=== PATIENT | female | born 1965 | race African-American/Black ===

== ENCOUNTER 2016-08-08 18:15 | Emergency (ER) | payer SELFPAY ==
[2016-08-08 19:00] LABS: BASO % 0 % (0-3); EOS % 1 % (0-3); HEMATOCRIT 47.1 % (36.0-47.0); HEMOGLOBIN 15.5 g/dL (12.0-15.5); LYMPH # 2.1 x10^3/uL (1.0-4.8); LYMPH % 14 % (24-48); MEAN CORPUSCULAR HEMOGLOBIN 30 pg (25-35); MEAN CORPUSCULAR HGB CONC 33 g/dL (31-37); MEAN CORPUSCULAR VOLUME 91 fL (79-100); MONO % 4 % (0-9); NEUT % 81 % (31-73); PLATELET COUNT 267 x10^3/uL (140-400); RED BLOOD COUNT 5.16 x10^6/uL (3.50-5.40); RED CELL DISTRIBUTION WIDTH 13.3 % (11.5-14.5); WHITE BLOOD COUNT 15.3 x10^3/uL (4.0-11.0)
[2016-08-08] MEDS: FENTANYL PF 100 MCG/2 ML VIAL. IV PRN ×3 (19:07→22:00)
[2016-08-08] MEDS: NITROGLYCERIN SUBLINGUAL 0.4 MG BOTTLE OF 25. SL PRN ×3 (19:07→20:14)
[2016-08-08 19:14] LABS: CALCIUM 8.9 mg/dL (8.5-10.1); POTASSIUM 3.4 mmol/L (3.5-5.1)
[2016-08-08 19:18] LABS: BILIRUBIN,URINE NEGATIVE (NEG); GLUCOSE,URINE NEGATIVE (NEG); NITRITE,URINE NEGATIVE (NEG); PROTEIN,URINE NEGATIVE (NEG-TRACE); UROBILINOGEN,URINE 0.2 mg/dL (0.2 mg/dL)
[2016-08-08 19:22] LABS: ALBUMIN 3.7 g/dL (3.4-5.0); ALBUMIN/GLOBULIN RATIO 0.9 (1.0-1.7); TOTAL BILIRUBIN 0.4 mg/dL (0.2-1.0); TOTAL PROTEIN 7.7 g/dL (6.4-8.2)
[2016-08-08 19:23] LABS: PROTHROMBIN TIME PATIENT 12.8 SEC (11.7-14.0)
[2016-08-08 19:28] LABS: BACTERIA,URINE MODERATE /HPF (0-FEW); SQUAMOUS EPITHELIAL CELL,UR FEW /LPF
[2016-08-08] MEDS ORDERED: KETOROLAC TROMETHAMINE 30 MG/ML SYRINGE. IV ONE (20:15)
[2016-08-08 22:00] VITALS: BP 95/51
[2016-08-08] MEDS ORDERED: CYCL10TA2 PO (22:32)
[2016-08-08] MEDS ORDERED: NAPR250T2 PO (22:32)
--- NOTE | 2016-08-09 01:11 | ED.ADGEN ---
Past Medical History Past Medical History: No Pertinent History, Hypertension Past Surgical History: No Surgical History Alcohol Use: None Drug Use: None Adult General Chief Complaint Chief Complaint: CHEST PAIN HPI HPI Patient is a 51 year old woman, history of hypertension, who presents to the emergency department with complaint of right-sided and mid chest pain. Patient states the symptoms have been coming or going for the past several days. She states he did have a cough, with rhinorrhea last week, but not currently expressing the symptoms. Denies any productive cough, any difficulty breathing, any weakness emesis or tingling. She states the pain is located in the anterior portion of her chest, and is worse with motion and palpation. Denies any injuries. Review of Systems Review of Systems Constitutional: Denies fever or chills. [] Eyes: Denies change in visual acuity. [] HENT: Denies nasal congestion or sore throat. [] Respiratory: Denies cough or shortness of breath. [] Cardiovascular: Left-sided and midsternal chest pain pain, worse with motion and pressure. GI: Denies abdominal pain, nausea, vomiting, bloody stools or diarrhea. [] : Denies dysuria. [] Musculoskeletal: Denies back pain or joint pain. [] Integument: Denies rash. [] Neurologic: Denies headache, focal weakness or sensory changes. [] Endocrine: Denies polyuria or polydipsia. [] Lymphatic: Denies swollen glands. [] Psychiatric: Denies depression or anxiety. [] Current Medications Current Medications Current Medications Medications (Trade) Dose Ordered Sig/Michele Start Time Stop Time Status Last Admin Dose Admin Fentanyl Citrate (Fentanyl 2ml Vial) 25 mcg PRN Q15MIN PRN 08/08/16 19:00 08/08/16 23:35 DC 08/08/16 22:00 25 MCG Ketorolac Tromethamine (Toradol) 10 mg 1X ONCE 08/08/16 20:15 08/08/16 20:16 DC 08/08/16 20:13 10 MG Nitroglycerin (Nitrostat) 0.4 mg PRN Q5MIN PRN 08/08/16 19:00 08/08/16 23:35 DC 08/08/16 20:14 0.4 MG Allergies Allergies Allergies Coded Allergies Type Severity Reaction Last Updated Verified No Known Drug Allergies 01/25/15 No Physical Exam Physical Exam Constitutional: Well developed, well nourished, no acute distress, non-toxic appearance. [] HENT: Normocephalic, atraumatic, bilateral external ears normal, oropharynx moist, no oral exudates, nose normal. [] Eyes: PERRLA, EOMI, conjunctiva normal, no discharge. [] Neck: Normal range of motion, no tenderness, supple, no stridor. [] Cardiovascular:Heart rate regular rhythm, no murmur, S1, S2, rubs or gallops. [] Lungs & Thorax: Bilateral breath sounds clear to auscultation, no wheezing, rhonchi, rales. Patient with reproducible chest pain located in the anterior chest, no external signs of trauma, no rashes or other lesions identified. [] Abdomen: Bowel sounds normal, soft, no tenderness, no masses, no pulsatile masses. [] Skin: Warm, dry, no erythema, no rash. [] Back: No tenderness, no CVA tenderness. [] Extremities: No tenderness, no cyanosis, no clubbing, ROM intact, no edema. Negative Homans sign.] Neurologic: Alert and oriented X 3, normal motor function, normal sensory function, no focal deficits noted. [] Psychologic: Affect normal, judgement normal, mood normal. [] Current Patient Data Vital Signs Vital Signs Date Time Temp Pulse Resp B/P Pulse Ox O2 Delivery O2 Flow Rate FiO2 08/08/16 22:00 76 32 95/51 91 Room Air 08/08/16 18:27 98.2 98.2 Lab Values Laboratory Tests Test 08/08/16 18:35 08/08/16 19:10 08/08/16 21:55 White Blood Count 15.3x10^3/uL (4.0-11.0) H Red Blood Count 5.16x10^6/uL (3.50-5.40) Hemoglobin 15.5g/dL (12.0-15.5) Hematocrit 47.1% (36.0-47.0) H Mean Corpuscular Volume 91fL (79-100) Mean Corpuscular Hemoglobin 30pg (25-35) Mean Corpuscular Hemoglobin Concent 33g/dL (31-37) Red Cell Distribution Width 13.3% (11.5-14.5) Platelet Count 267x10^3/uL (140-400) Neutrophils (%) (Auto) 81% (31-73) H Lymphocytes (%) (Auto) 14% (24-48) L Monocytes (%) (Auto) 4% (0-9) Eosinophils (%) (Auto) 1% (0-3) Basophils (%) (Auto) 0% (0-3) Neutrophils # (Auto) 12.4x10^3uL (1.8-7.7) H Lymphocytes # (Auto) 2.1x10^3/uL (1.0-4.8) Monocytes # (Auto) 0.7x10^3/uL (0.0-1.1) Eosinophils # (Auto) 0.1x10^3/uL (0.0-0.7) Basophils # (Auto) 0.0x10^3/uL (0.0-0.2) Prothrombin Time 12.8SEC (11.7-14.0) Prothrombin Time INR 1.0 (0.8-1.1) Sodium Level 142mmol/L (136-145) Potassium Level 3.4mmol/L (3.5-5.1) L Chloride Level 105mmol/L (98-107) Carbon Dioxide Level 25mmol/L (21-32) Anion Gap 12 (6-14) Blood Urea Nitrogen 9mg/dL (7-20) Creatinine 1.0mg/dL (0.6-1.0) Estimated GFR (Cockcroft-Gault) 71.0 BUN/Creatinine Ratio 9 (6-20) Glucose Level 111mg/dL (70-99) H Calcium Level 8.9mg/dL (8.5-10.1) Total Bilirubin 0.4mg/dL (0.2-1.0) Aspartate Amino Transferase (AST) 12U/L (15-37) L Alanine Aminotransferase (ALT) 11U/L (14-59) L Alkaline Phosphatase 53U/L (46-116) Troponin I Quantitative < 0.017ng/mL (0.000-0.055) ZW-Vod-H-Type Natriuretic Peptide 55pg/mL (0-124) Total Protein 7.7g/dL (6.4-8.2) Albumin 3.7g/dL (3.4-5.0) Albumin/Globulin Ratio 0.9 (1.0-1.7) L Lipase 109U/L (73-393) Urine Collection Type Unknown Urine Color Yellow Urine Clarity Clear Urine pH 6.0 Urine Specific [place] 1.010 Urine Protein Negativemg/dL (NEG-TRACE) Urine Glucose (UA) Negativemg/dL (NEG) Urine Ketones (Stick) Negativemg/dL (NEG) Urine Blood Large (NEG) Urine Nitrite Negative (NEG) Urine Bilirubin Negative (NEG) Urine Urobilinogen Dipstick 0.2mg/dL (0.2 mg/dL) Urine Leukocyte Esterase Trace (NEG) Urine RBC 6-10/HPF (0-2) Urine WBC 1-4/HPF (0-4) Urine Squamous Epithelial Cells Few/LPF Urine Bacteria Moderate/HPF (0-FEW) Urine Mucus Slight/LPF POC Troponin I 0.00ng/ml (<0.08) Laboratory Tests 08/08/16 18:35 Laboratory Tests 08/08/16 18:35 EKG EKG EC: Sinus rhythm, heart rate 89 beats minute, upright axis, QTC of 420, SD 138, QRS of 70, no ST elevations or depressions, mild baseline artifact noted , no evidence of acute ST T abnormalities. As interpreted by me. [] Radiology/Procedures Radiology/Procedures Chest x-ray: One view: Mild hilar fullness noted, otherwise cardial cardiac silhouette is normal, no fracture civilization, no infiltrates or effusion. As interpreted by me. [] Course & Med Decision Making Course & Med Decision Making Pertinent Labs and Imaging studies reviewed. (See chart for details) Patient with reproducible chest pain, no hypoxia, normal oxygen saturation and other vital signs within normal limits, no evidence of respiratory difficulties. Laboratory studies reveal a normal troponin, and leukocytosis of 15.9, with mild left shift, no bandemia. Every question the patient regarding her report of previous cough, with rhinorrhea, symptoms may be consistent with a viral illness, and her examination is consistent with costochondritis or musculoskeletal chest wall pain. Patient received a repeat for a troponin in the ED, which was 0.0. I did discuss with patient admission for additional evaluation, as she has been experiencing this chest pain over the past week or so, however with 2 negative troponins, and very reproducible symptoms, with recent viral infection, patient would prefer to follow-up with her primary care provider, states she'll be able to follow-up in the next [address] Harry , is agreeable to trialing anti-inflammatory and muscle relaxing agents, and returning to the ED for concerning symptoms as discussed. Patient discharged home with family in stable condition with plan as above. Dragon Disclaimer Dragon Disclaimer This electronic medical record was generated, in whole or in part, using a voice recognition dictation system. Departure Impression: Primary Impression: Chest wall pain Disposition: HOME, SELF-CARE Condition: IMPROVED Scripts Naproxen 250 Mg [id number] Mg PO BID PRN PAIN #10 Prov:KAROLINA VELIZ DO 08/08/16 Cyclobenzaprine Hcl 10 Mg [id number] Mg PO TID PRN MUSCLE SPASMS #12 TAB Prov:KAROLINA VELIZ DO 08/08/16 KAROLINA VELIZ DO Aug 09, 2016 01:11
--- NOTE | 2016-08-09 06:44 | EKG ---
[facility] [address] [place] [address] Test Date: 2016-08-08 Test Time: 18:27:24 Pat Name: DIANA LOPEZ Department: Room: Gender: F Bank President: : 1965 Requested By: KAROLINA VELIZ Order Number: [id number] Reading MD: Measurements Intervals [place] Rate: 89 P: 38 DE: 138 QRS: 18 QRSD: 78 T: 26 QT: 344 QTc: 420 Interpretive Statements SINUS RHYTHM QRS(T) CONTOUR ABNORMALITY CONSIDER ANTEROSEPTAL MYOCARDIAL DAMAGE POSSIBLY ABNORMAL ECG RI6.01 No previous ECG available for comparison
--- NOTE | 2016-08-09 08:49 | RAD ---
Portable chest, 08/08/2016: History: Mid chest pain Comparison is made to a study from 02/19/2008. The heart size and pulmonary vascularity are normal. There are mild streaky basilar opacities compatible with atelectasis. The upper lung quinones are clear. No pleural fluid is evident. IMPRESSION: Mild streaky bibasilar atelectasis.
== END 2016-08-08 22:33 | disposition home or self-care (01) ==
LOC: ER 18:15
DX: R07.89 Other chest pain (principal); R05 Cough; J34.89 Other specified disorders of nose and nasal sinuses; I10 Essential (primary) hypertension
CPT/HCPCS: 36415; 71010; 80053; 81001; 83690; 83880; 84484; 85027; 85610; 87086; 93005; 96374; 96375; 96376; 99285; J1885; J3010

== ENCOUNTER 2017-05-22 14:20 | Emergency (ER) | payer OTHER ==
[~2017-05-22] VITALS: Ht 160 cm; Wt 77.1 kg
[~2017-05-22 14:20] MED LIST: CYCL10TA2 PO; NAPR250T6 PO
[2017-05-22 14:49] VITALS: BP 135/85
[2017-05-22] MEDS ORDERED: PRED20TA PO (15:52)
--- NOTE | 2017-05-22 15:52 | PHYS DOC ---
Past Medical History Past Medical History: No Pertinent History, Hypertension Past Surgical History: No Surgical History Alcohol Use: None Drug Use: None Adult General Chief Complaint Chief Complaint: INSECT BITE [facility] HPI Patient is a 52 year old female presents to the emergency department stating that she has a red spot on the her right upper foot. Patient also states that she has a reddened area on the inner part of her left arm. Patient states she's had 2 lesions on the back of her right heel that they've been irritated with yellow drainage coming from the site. These areas have healed. Patient denies any fever, chills or any nausea vomiting. 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 Review of Systems Review of Systems Constitutional: Denies fever or chills [] Eyes: Denies change in visual acuity, redness, or eye pain [] HENT: Denies nasal congestion or sore throat [] Respiratory: Denies cough or shortness of breath [] Cardiovascular: No additional information not addressed in HPI [] GI: Denies abdominal pain, nausea, vomiting, bloody stools or diarrhea [] : Denies dysuria or hematuria [] Musculoskeletal: Denies back pain or joint pain [] Integument: Denies rash or skin lesions. Red areas to the right upper foot, left upper inner arm Neurologic: Denies headache, focal weakness or sensory changes [] Endocrine: Denies polyuria or polydipsia [] Allergies Allergies Allergies Coded Allergies Type Severity Reaction Last Updated Verified No Known Drug Allergies 01/25/15 No Physical Exam Physical Exam Constitutional: Well developed, well nourished, no acute distress, non-toxic appearance. [] HENT: Normocephalic, atraumatic, bilateral external ears normal, oropharynx moist, no oral exudates, nose normal. [] Eyes: PERRLA, EOMI, conjunctiva normal, no discharge. [] Neck: Normal range of motion, no tenderness, supple, no stridor. [] Cardiovascular:Heart rate regular rhythm, no murmur [] Lungs & Thorax: Bilateral breath sounds clear to auscultation [] Skin: Warm, dry, no erythema, no rash. Patient with redness noted to the top of the metatarsal areas on the right foot. She has a reddened area noted to the left inner arm just above the antecubital area. No puncture wounds noted. No drainage or discharge noted from the site. No raised areas noted. Extremities: No tenderness, no cyanosis, no clubbing, ROM intact, no edema. [] Neurologic: Alert and oriented X 3, normal motor function, normal sensory function, no focal deficits noted. [] Psychologic: Affect normal, judgement normal, mood normal. [] Current Patient Data Vital Signs Vital Signs Date Time Temp Pulse Resp B/P (MAP) Pulse Ox O2 Delivery O2 Flow Rate FiO2 05/22/17 14:49 98.2 82 18 95 Room Air 98.2 EKG EKG [] Radiology/Procedures Radiology/Procedures [] Course & Med Decision Making Course & Med Decision Making Pertinent Labs and Imaging studies reviewed. (See chart for details) Patient will be discharged home with recommendations to use Benadryl 25 mg every 6 hours. She'll be provided with a prescription for prednisone. Recommended keeping the area clean and dry and cool. Signs and symptoms to return back to emergency department as been provided. All questions and concerns been answered at patient's bedside. Patient agrees with discharge instructions treatment regimens and follow-up recommendations. [] Dragon Disclaimer Dragon Disclaimer This electronic medical record was generated, in whole or in part, using a voice recognition dictation system. Departure Departure Impression: Primary Impression: Contact dermatitis Disposition: 01 HOME, SELF-CARE Condition: STABLE Referrals: LYNDSEY CONTRERAS MD (PCP) Patient Instructions: Contact Dermatitis, [id number] Additional Instructions: Activity as tolerated. Medications as prescribed. Benadryl 25 mg every 6 hours. This medication will cause drowsiness do not take any be alert and oriented. Keep the areas clean dry and cool. Use Pepcid 20 mg daily for the next 7 days Follow-up with primary care physician in the next 5-7 days. Return back to emergency prior signs symptoms of become worse. Scripts Prednisone (PREDNISONE) 20 Mg Tablet 40 MG PO DAILY for 7 Days, #14 TAB Prov: MELISA ANGEL APRN 05/22/17 Problem Qualifiers Primary Impression: Contact dermatitis Contact dermatitis type: unspecified Contact dermatitis trigger: unspecified trigger Qualified Codes: L25.9 - Unspecified contact dermatitis, unspecified cause MELISA ANGEL APRN May 22, 2017 15:52
== END 2017-05-22 16:04 | disposition home or self-care (01) ==
LOC: ER 14:20
DX: L25.9 Unspecified contact dermatitis, unspecified cause (principal); I10 Essential (primary) hypertension
CPT/HCPCS: 99283

== ENCOUNTER 2017-12-31 10:19 | Emergency (ER) | payer OTHER ==
[2017-12-31 10:37] LABS: URINE HCG POC HCG NEGATIVE (Negative)
[2017-12-31 10:56] LABS: ADD MAN DIFF? NO
[2017-12-31 11:05] LABS: BILIRUBIN,URINE NEGATIVE (NEG); CLARITY,URINE CLEAR; COLOR,URINE YELLOW; GLUCOSE,URINE NEGATIVE (NEG); NITRITE,URINE NEGATIVE (NEG); PH,URINE 5.5; PROTEIN,URINE NEGATIVE (NEG-TRACE)
[2017-12-31 11:06] LABS: BASO % 1 % (0-3); EOS # 0.1 x10^3/uL (0.0-0.7); EOS % 1 % (0-3); HEMATOCRIT 46.8 % (36.0-47.0); HEMOGLOBIN 15.8 g/dL (12.0-15.5); LYMPH # 1.8 x10^3/uL (1.0-4.8); LYMPH % 20 % (24-48); MEAN CORPUSCULAR HEMOGLOBIN 31 pg (25-35); MEAN CORPUSCULAR HGB CONC 34 g/dL (31-37); MEAN CORPUSCULAR VOLUME 92 fL (79-100); MONO # 0.5 x10^3/uL (0.0-1.1); MONO % 5 % (0-9); NEUT # 6.7 x10^3uL (1.8-7.7); NEUT % 73 % (31-73); PLATELET COUNT 194 x10^3/uL (140-400); RED BLOOD COUNT 5.08 x10^6/uL (3.50-5.40); RED CELL DISTRIBUTION WIDTH 14.8 % (11.5-14.5); WHITE BLOOD COUNT 9.2 x10^3/uL (4.0-11.0)
[2017-12-31 11:22] LABS: BACTERIA,URINE 0 /HPF (0-FEW); RBC,URINE TNTC /HPF (0-2); SQUAMOUS EPITHELIAL CELL,UR FEW /LPF; WBC,URINE OCC /HPF (0-4)
[2018-01-01 14:25] LABS: CHLAMYDIA PROBE Negative (Negative); GC PROBE Negative (Negative)
== END 2017-12-31 13:27 | disposition home or self-care (01) ==
LOC: ER 10:19
DX: D25.9 Leiomyoma of uterus, unspecified (principal); I10 Essential (primary) hypertension
CPT/HCPCS: 36415; 76830; 76856; 81001; 81025; 85025; 87086; 87491; 87591; 99285-25

== ENCOUNTER 2018-08-19 09:02 | Emergency (ER) | payer BC, OTHER ==
[~2018-08-19] VITALS: Ht 160 cm; Wt 75.7 kg
[~2018-08-19 09:02] MED LIST changes: +NAPR-514 PO; +OXYC1TAB15 PO; +PRED20TA PO
[2018-08-19 09:18] VITALS: BP 162/74
--- NOTE | 2018-08-19 09:25 | PHYS DOC ---
Past Medical History Past Medical History: No Pertinent History, Hypertension Past Surgical History: Other Additional Past Surgical Histo: removal of ovary Alcohol Use: None Drug Use: None Adult General Chief Complaint Chief Complaint: ANKLE PROBLEM HPI HPI Patient is a 53 year old female with history of hypertension who presents today complaining of mild sharp intermittent right lateral ankle pain that began on Sunday after she stepped into a hole at [employer]. Patient states today she was walking and she rolled her ankle. Patient states the pain is worse on weight bearing. Patient states she has not taken anything for her pain. Review of Systems Review of Systems Constitutional: Denies fever or chills [] Musculoskeletal: Reports right ankle pain Integument: Denies rash or skin lesions [] Neurologic: Denies headache, focal weakness or sensory changes [] All other systems were reviewed and found to be within normal limits, except as documented in this note. Allergies Allergies Allergies Coded Allergies Type Severity Reaction Last Updated Verified No Known Drug Allergies 02/19/18 No Physical Exam Physical Exam Constitutional: Well developed, well nourished, no acute distress, non-toxic appearance. [] Skin: Warm, dry, no erythema, no rash. [] Back: No tenderness, no CVA tenderness. [] Extremities: Right ankle with no obvious deformity. Mild soft tissue swelling noted on the right lateral ankle. Full range of motion to the right ankle and foot and toes. +2 right pedal pulse. Cap refill less than 2 seconds the right toes. Sensation intact to the right lower extremity. Neurologic: Alert and oriented X 3, normal motor function, normal sensory function, no focal deficits noted. [] Psychologic: Affect normal, judgement normal, mood normal. [] Current Patient Data Vital Signs Vital Signs Date Time Temp Pulse Resp B/P (MAP) Pulse Ox O2 Delivery O2 Flow Rate FiO2 08/19/18 09:18 97.7 81 20 162/74 (103) 97 Room Air 97.7 EKG EKG [] Radiology/Procedures Radiology/Procedures []PROCEDURE: ANKLE RIGHT 3V Three-view right ankle radiographs 08/19/2018 CLINICAL HISTORY: Right ankle pain. AP, lateral and oblique digital radiographs of the right ankle were obtained. No fracture or dislocation of the right ankle is seen. Moderate to severe degenerative changes are seen involving the right ankle joint. These consist of joint compartment narrowing, subchondral sclerosis and associated osteophyte formation. IMPRESSION: Moderate to severe degenerative changes are seen involving the right ankle joint. No acute osseous abnormality is seen. Electronically signed by: Rosi Birmingham MD (08/19/2018 10:26 AM) [id number] DICTATED and SIGNED BY: ROSI BIRMINGHAM MD DATE: 08/19/18 1024 Course & Med Decision Making Course & Med Decision Making Pertinent Labs and Imaging studies reviewed. (See chart for details) This is a 53-year-old female patient presented to the ED today with right ankle pain after an injury on Sunday as well as today. See history of present illness. Right ankle x-rays interpreted by radiologist are negative for any acute findings, noted for DJD. Air cast provided. Ice elevation encouraged. Diclofenac Medrol Dosepak prescription provided. Follow-up with PCP in 1-2 weeks or the provided orthopedic doctor. Dragon Disclaimer Dragon Disclaimer This electronic medical record was generated, in whole or in part, using a voice recognition dictation system. Departure Departure Impression: Primary Impression: Right ankle sprain Disposition: HOME, SELF-CARE Condition: STABLE Referrals: LYNDSEY CONTRERAS MD (PCP) Follow-up in 1-2 weeks FREDDIE MOONEY MD Follow-up in 1-2 weeks Patient Instructions: Ankle Sprain Additional Instructions: You were evaluated in the emergency room for right ankle sprain. Your right ankle x-rays are negative for any acute findings, noted for arthritis in your ankle. Ice and elevate the extremity. Wear the provided air cast as tolerated. Use the prescribed medications as ordered. Follow-up with the provided orthopedic doctor or your own doctor in 1-2 weeks. Scripts Diclofenac Sodium (DICLOFENAC SODIUM) 50 Mg Tablet.dr 1 TAB PO BID, #20 TAB 0 Refills Prov: LAZARUSLolyKATHIE CARBON ACCOUNTANT 08/19/18 Methylprednisolone (MEDROL) 4 Mg Tab.ds.pk 1 PKG PO UD, #1 PKG Prov: KIESHAFARAHTKATHIE Salcido CARBON ACCOUNTANT 08/19/18 Problem Qualifiers Primary Impression: Right ankle sprain Encounter type: initial encounter Involved ligament of ankle: unspecified ligament Qualified Codes: S93.401A - Sprain of unspecified ligament of right ankle, initial encounter KIESHAKATHIE ROSS CARBON ACCOUNTANT Aug 19, 2018 09:25
--- NOTE | 2018-08-19 10:30 | RAD ---
Three-view right ankle radiographs 08/19/2018 CLINICAL HISTORY: Right ankle pain. AP, lateral and oblique digital radiographs of the right ankle were obtained. No fracture or dislocation of the right ankle is seen. Moderate to severe degenerative changes are seen involving the right ankle joint. These consist of joint compartment narrowing, subchondral sclerosis and associated osteophyte formation. IMPRESSION: Moderate to severe degenerative changes are seen involving the right ankle joint. No acute osseous abnormality is seen. Electronically signed by: Stanislaw Birmingham MD (08/19/2018 10:26 AM) [id number]
[2018-08-19] MEDS ORDERED: DICL50TA4 PO (10:58)
[2018-08-19] MEDS ORDERED: METH4TAB2 PO (10:58)
== END 2018-08-19 11:43 | disposition home or self-care (01) ==
LOC: ER 09:02
DX: S93.401A Sprain of unspecified ligament of right ankle, initial encounter (principal); I10 Essential (primary) hypertension; W17.2XXA Fall into hole, initial encounter; Y93.89 Activity, other specified; Y92.89 Other specified places as the place of occurrence of the external cause; Y99.8 Other external cause status
CPT/HCPCS: 73610; 99283; L4350

== ENCOUNTER 2018-10-01 13:30 | Emergency (ER) | payer BC, OTHER ==
[~2018-10-01] VITALS: Ht 162.6 cm; Wt 75.7 kg
[~2018-10-01 13:30] MED LIST changes: +DICL50TA4 PO; +METH4TAB2 PO
[2018-10-01] MEDS ORDERED: ONDANSETRON PF 4 MG/2 ML VIAL. IV ONE (14:00)
[2018-10-01] MEDS ORDERED: fentaNYL PF VIAL 100 MCG/2 ML VIAL IV ONE (14:00)
[2018-10-01] MEDS ORDERED: IV NORMAL SALINE 1000ML BAG 1,000 ML IV ONE (14:00)
[2018-10-01 14:01] LABS: BILIRUBIN,URINE NEGATIVE (NEG); CLARITY,URINE CLOUDY; COLOR,URINE AMBER; NITRITE,URINE POSITIVE (NEG); PROTEIN,URINE 30 mg/dL (NEG-TRACE)
[2018-10-01 14:11] LABS: BACTERIA,URINE MANY /HPF (0-FEW); RBC,URINE TNTC /HPF (0-2); SQUAMOUS EPITHELIAL CELL,UR MOD /LPF; WBC,URINE TNTC /HPF (0-4)
[2018-10-01 14:33] LABS: BASO # 0.1 x10^3/uL (0.0-0.2); BASO % 1 % (0-3); EOS # 0.1 x10^3/uL (0.0-0.7); EOS % 1 % (0-3); HEMATOCRIT 43.7 % (36.0-47.0); HEMOGLOBIN 14.5 g/dL (12.0-15.5); LYMPH # 1.4 x10^3/uL (1.0-4.8); LYMPH % 11 % (24-48); MEAN CORPUSCULAR HEMOGLOBIN 30 pg (25-35); MEAN CORPUSCULAR HGB CONC 33 g/dL (31-37); MEAN CORPUSCULAR VOLUME 89 fL (79-100); MONO # 0.7 x10^3/uL (0.0-1.1); MONO % 6 % (0-9); NEUT # 10.1 x10^3uL (1.8-7.7); NEUT % 82 % (31-73); PLATELET COUNT 247 x10^3/uL (140-400); RED BLOOD COUNT 4.89 x10^6/uL (3.50-5.40); RED CELL DISTRIBUTION WIDTH 14.5 % (11.5-14.5); WHITE BLOOD COUNT 12.3 x10^3/uL (4.0-11.0)
[2018-10-01 14:58] LABS: CALCIUM 9.2 mg/dL (8.5-10.1); CREATININE 1.2 mg/dL (0.6-1.0); GFR 57.1; POTASSIUM 3.6 mmol/L (3.5-5.1)
[2018-10-01 15:03] LABS: ALBUMIN 3.5 g/dL (3.4-5.0); ALBUMIN/GLOBULIN RATIO 0.8 (1.0-1.7); TOTAL BILIRUBIN 0.7 mg/dL (0.2-1.0); TOTAL PROTEIN 8.1 g/dL (6.4-8.2)
[2018-10-01] MEDS ORDERED: CIPROFLOXACIN 400MG PREMIX 200 ML IV ONE (15:15)
[2018-10-01 16:30] VITALS: BP 92/50
--- NOTE | 2018-10-01 16:41 | RAD ---
CT study of the abdomen and pelvis without contrast Clinical indications: Bilateral flank pain. Nausea. Body aches for 2 weeks. At technique: Noncontrast helical CT scanning of the abdomen and pelvis was performed. Without contrast, the sensitivity to detect organ pathology is decreased. PQRS compliance Statement One or more of the following individualized dose reduction techniques were utilized for this study: 1. Automated exposure control 2. Adjustment of the mA and/or kV according to patient size 3. Use of iterative reconstruction technique FINDINGS: The liver and spleen and pancreas are unremarkable on this noncontrast study. The gallbladder is surgically absent. No extrahepatic biliary ductal dilatation is seen. No adrenal mass is evident. No hydronephrosis or hydroureter is seen on either side. No renal mass is seen on either side on this noncontrast study. The urinary bladder wall is smooth. No focal aneurysmal dilatation of the abdominal aorta is seen. No enlarged abdominal or pelvic lymphadenopathy is evident. The appendix is normal. Terminal ileum is unremarkable. No obstructive bowel pattern is evident. No free air or free fluid or mesenteric edema is seen. No lung base consolidation is evident. No lytic process is seen. IMPRESSION: No acute abnormality of the abdomen or pelvis. Electronically signed by: Palomo Barbour MD (10/01/2018 4:38 PM) [facility]
[2018-10-01] MEDS ORDERED: CIPR500T94 PO (16:50)
[2018-10-01] MEDS ORDERED: ONDA4TAB12 PO (16:52)
--- NOTE | 2018-10-01 16:52 | PHYS DOC ---
Past Medical History Past Medical History: Hypertension Past Surgical History: Hysterectomy Additional Past Surgical Histo: removal of ovary Alcohol Use: None Drug Use: None Adult General Chief Complaint Chief Complaint: FLANK PAIN HPI HPI Patient is a 53 year old female who presents with right flank pain and dysuria. The patient states that she has not been feeling well for approximately 2 weeks. She went to the restroom today and noticed that her urine was dark and had a foul-smelling odor. She has been febrile off and on and has been taking [id number] medications to control her fever. She did have an episode of nausea today. She denies constipation or diarrhea. Review of Systems Review of Systems Constitutional: Denies fever or chills [] Respiratory: Denies cough or shortness of breath [] Cardiovascular: No additional information not addressed in HPI [] GI: See history of present illness : See history of present illness Musculoskeletal: Denies back pain or joint pain [] Integument: Denies rash or skin lesions [] Neurologic: Denies headache, focal weakness or sensory changes [] Endocrine: Denies polyuria or polydipsia [] All other systems were reviewed and found to be within normal limits, except as documented in this note. Current Medications Current Medications Current Medications Medications (Trade) Dose Ordered Sig/Michele Start Time Stop Time Status Last Admin Dose Admin Ciprofloxacin/ Dextrose 200 ml @ 200 mls/hr 1X ONCE 10/01/18 15:15 10/01/18 16:15 DC 10/01/18 15:32 200 MLS/HR Fentanyl Citrate (Fentanyl 2ml Vial) 50 mcg 1X ONCE 10/01/18 14:00 10/01/18 14:01 DC 10/01/18 14:06 50 MCG Ondansetron HCl (Zofran) 4 mg 1X ONCE 10/01/18 14:00 10/01/18 14:01 DC 10/01/18 14:05 4 MG Sodium Chloride 1,000 ml @ 1,000 mls/hr 1X ONCE 10/01/18 14:00 10/01/18 14:59 DC 10/01/18 14:04 1,000 MLS/HR Allergies Allergies Allergies Coded Allergies Type Severity Reaction Last Updated Verified No Known Drug Allergies 02/19/18 No Physical Exam Physical Exam Constitutional: Well developed, well nourished, no acute distress, non-toxic appearance. [] HENT: Normocephalic, atraumatic, bilateral external ears normal, oropharynx moist, no oral exudates, nose normal. [] Eyes: PERRLA, EOMI, conjunctiva normal, no discharge. [] Neck: Normal range of motion, no tenderness, supple, no stridor. [] Cardiovascular:Heart rate regular rhythm, no murmur [] Lungs & Thorax: Bilateral breath sounds clear to auscultation [] Abdomen: Bowel sounds normal, soft, suprapubic tenderness noted, no masses, no pulsatile masses. [] Skin: Warm, dry, no erythema, no rash. [] Back: No tenderness, CVA tenderness to right. [] Extremities: No tenderness, no cyanosis, no clubbing, ROM intact, no edema. [] Neurologic: Alert and oriented X 3, normal motor function, normal sensory function, no focal deficits noted. [] Psychologic: Affect normal, judgement normal, mood normal. [] Current Patient Data Vital Signs Vital Signs Date Time Temp Pulse Resp B/P (MAP) Pulse Ox O2 Delivery O2 Flow Rate FiO2 10/01/18 16:30 90 18 92/50 (64) 96 Room Air 10/01/18 13:30 97.8 97.8 Lab Values Laboratory Tests Test 10/01/18 13:41 10/01/18 14:00 Urine Collection Type Void Urine Color Letty Urine Clarity Cloudy Urine pH 6.0 Urine Specific Preston 1.010 Urine Protein 30 mg/dL (NEG-TRACE) Urine Glucose (UA) Negative mg/dL (NEG) Urine Ketones (Stick) Negative mg/dL (NEG) Urine Blood Large (NEG) Urine Nitrite Positive (NEG) Urine Bilirubin Negative (NEG) Urine Urobilinogen Dipstick 1.0 mg/dL (0.2 mg/dL) Urine Leukocyte Esterase Large (NEG) Urine RBC Tntc /HPF (0-2) Urine WBC Tntc /HPF (0-4) Urine Squamous Epithelial Cells Mod /LPF Urine Bacteria Many /HPF (0-FEW) White Blood Count 12.3 x10^3/uL (4.0-11.0) H Red Blood Count 4.89 x10^6/uL (3.50-5.40) Hemoglobin 14.5 g/dL (12.0-15.5) Hematocrit 43.7 % (36.0-47.0) Mean Corpuscular Volume 89 fL (79-100) Mean Corpuscular Hemoglobin 30 pg (25-35) Mean Corpuscular Hemoglobin Concent 33 g/dL (31-37) Red Cell Distribution Width 14.5 % (11.5-14.5) Platelet Count 247 x10^3/uL (140-400) Neutrophils (%) (Auto) 82 % (31-73) H Lymphocytes (%) (Auto) 11 % (24-48) L Monocytes (%) (Auto) 6 % (0-9) Eosinophils (%) (Auto) 1 % (0-3) Basophils (%) (Auto) 1 % (0-3) Neutrophils # (Auto) 10.1 x10^3uL (1.8-7.7) H Lymphocytes # (Auto) 1.4 x10^3/uL (1.0-4.8) Monocytes # (Auto) 0.7 x10^3/uL (0.0-1.1) Eosinophils # (Auto) 0.1 x10^3/uL (0.0-0.7) Basophils # (Auto) 0.1 x10^3/uL (0.0-0.2) Sodium Level 140 mmol/L (136-145) Potassium Level 3.6 mmol/L (3.5-5.1) Chloride Level 101 mmol/L (98-107) Carbon Dioxide Level 25 mmol/L (21-32) Anion Gap 14 (6-14) Blood Urea Nitrogen 16 mg/dL (7-20) Creatinine 1.2 mg/dL (0.6-1.0) H Estimated GFR (Cockcroft-Gault) 57.1 BUN/Creatinine Ratio 13 (6-20) Glucose Level 107 mg/dL (70-99) H Lactic Acid Level 1.9 mmol/L (0.4-2.0) Calcium Level 9.2 mg/dL (8.5-10.1) Total Bilirubin 0.7 mg/dL (0.2-1.0) Aspartate Amino Transferase (AST) 41 U/L (15-37) H Alanine Aminotransferase (ALT) 59 U/L (14-59) Alkaline Phosphatase 117 U/L (46-116) H Total Protein 8.1 g/dL (6.4-8.2) Albumin 3.5 g/dL (3.4-5.0) Albumin/Globulin Ratio 0.8 (1.0-1.7) L Laboratory Tests 10/01/18 14:00 Laboratory Tests 10/01/18 14:00 EKG EKG [] Radiology/Procedures Radiology/Procedures [] PATIENT: DIANA LOPEZ ACCOUNT: [id number] : 1965 LOCATION: ER AGE: 53 SEX: F EXAM STATUS: REG ER ORD. PHYSICIAN: MARY SMITH APRN REASON: flank pain PROCEDURE: CT ABDOMEN PELVIS WO CONTRAST CT study of the abdomen and pelvis without contrast Clinical indications: Bilateral flank pain. Nausea. Body aches for 2 weeks. At technique: Noncontrast helical CT scanning of the abdomen and pelvis was performed. Without contrast, the sensitivity to detect organ pathology is decreased. PQRS compliance Statement One or more of the following individualized dose reduction techniques were utilized for this study: 1. Automated exposure control 2. Adjustment of the mA and/or kV according to patient size 3. Use of iterative reconstruction technique FINDINGS: The liver and spleen and pancreas are unremarkable on this noncontrast study. The gallbladder is surgically absent. No extrahepatic biliary ductal dilatation is seen. No adrenal mass is evident. No hydronephrosis or hydroureter is seen on either side. No renal mass is seen on either side on this noncontrast study. The urinary bladder wall is smooth. No focal aneurysmal dilatation of the abdominal aorta is seen. No enlarged abdominal or pelvic lymphadenopathy is evident. The appendix is normal. Terminal ileum is unremarkable. No obstructive bowel pattern is evident. No free air or free fluid or mesenteric edema is seen. No lung base consolidation is evident. No lytic process is seen. IMPRESSION: No acute abnormality of the abdomen or pelvis. Electronically signed by: Gisele Barbour MD (10/01/2018 4:38 PM) [facility] DICTATED and SIGNED BY: GISELE BARBOUR MD DATE: 10/01/18 1628 Course & Med Decision Making Course & Med Decision Making Pertinent Labs and Imaging studies reviewed. (See chart for details) []The patient was given a dose of IV Cipro in the emergency department along with a liter of normal saline, fentanyl and Zofran to control her symptoms. She states that she is feeling much better. Eddieon Disclaimer Dragon Disclaimer This electronic medical record was generated, in whole or in part, using a voice recognition dictation system. Departure Departure Impression: Primary Impression: Pyelonephritis Disposition: 01 HOME, SELF-CARE Condition: STABLE Referrals: LYNDSEY CONTRERAS MD (PCP) Patient Instructions: Pyelonephritis, Adult Additional Instructions: Take the medication as directed. Follow-up with your primary care provider in one week for urine recheck or return to the emergency department if worsening. Scripts Ondansetron (ONDANSETRON ODT) 4 Mg Tab.rapdis 1 TAB PO PRN Q6-8HRS for nausea, #16 TAB Prov: MARY SMITH APRN 10/01/18 Ciprofloxacin Hcl (CIPRO) 500 Mg Tablet 1 TAB PO BID for pylonephritis, #20 TAB Prov: MARY SMITH APRN 10/01/18 MARY SMITH APRN Oct 01, 2018 16:52
== END 2018-10-01 17:24 | disposition home or self-care (01) ==
LOC: ER 13:30
DX: N12 Tubulo-interstitial nephritis, not specified as acute or chronic (principal); I10 Essential (primary) hypertension; Z90.710 Acquired absence of both cervix and uterus
CPT/HCPCS: 36415; 74176; 80053; 81001; 83605; 85025; 87040; 87086; 87186; 96365; 96375; 99284; J0744; J2405; J3010; J7030

== ENCOUNTER 2019-10-03 07:43 | Emergency (ER) | payer BC, OTHER ==
[~2019-10-03] VITALS: Ht 160 cm; Wt 80.9 kg
[~2019-10-03 07:43] MED LIST changes: +CIPR500T94 PO; +ONDA4TAB12 PO
[2019-10-03 07:51] VITALS: BP 128/62
--- NOTE | 2019-10-03 08:07 | PHYS DOC ---
Past Medical History Past Medical History: Hypertension Past Surgical History: Hysterectomy Additional Past Surgical Histo: removal of ovary Smoking Status: Current Every Day Smoker Alcohol Use: None Drug Use: None Adult General Chief Complaint Chief Complaint: WRIST PAIN [facility] Patient is a 54 year old female who presents with complaint of right wrist pain. She states that this morning while at work a client grabbed her right wrist and she twisted. She has pain at the base of the right thumb on the lateral aspect of the wrist. Her pain is mild but worse with some movement. No numbness or tingling distally. No medications taken prior to arrival. Review of Systems Review of Systems All other ROS is negative unless otherwise stated in HPI Allergies Allergies Allergies Coded Allergies Type Severity Reaction Last Updated Verified No Known Drug Allergies 02/19/18 No Physical Exam Physical Exam See above Constitutional: Well developed, well nourished, no acute distress, non-toxic appearance. [] HENT: Normocephalic, atraumatic, bilateral external ears normal, oropharynx moist, no oral exudates, nose normal. [] Eyes: PERRLA, EOMI, conjunctiva normal, no discharge. [] Neck: Normal range of motion, no tenderness, supple, no stridor. [] Cardiovascular:Heart rate regular rhythm, no murmur [] Lungs & Thorax: Bilateral breath sounds clear to auscultation [] Abdomen: Bowel sounds normal, soft, no tenderness, no masses, no pulsatile masses. [] Skin: Warm, dry, no erythema, no rash. [] Back: No tenderness, no CVA tenderness. [] Extremities: Normal except for the right wrist which has some mild tenderness to palpation in the lateral aspect without obvious deformity. There is mild swelling on the lateral aspect. No crepitus noted. Patient does have some minimal discomfort with medial and lateral deviation. Neurologic: Alert and oriented X 3, normal motor function, normal sensory function, no focal deficits noted. [] Psychologic: Affect normal, judgement normal, mood normal. [] Current Patient Data Vital Signs Vital Signs Date Time Temp Pulse Resp B/P (MAP) Pulse Ox O2 Delivery O2 Flow Rate FiO2 10/03/19 07:51 98.4 93 17 128/62 (84) 95 Room Air 98.4 EKG EKG [] Radiology/Procedures Radiology/Procedures WRIST 3V RIGHT History: Lateral wrist pain. Technique: 3 views right wrist. Comparison: None. Findings: Negative ulnar variance. 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 No fracture. Soft tissues unremarkable. Impression: 1. No acute osseous abnormality. 2. 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[] Course & Med Decision Making Course & Med Decision Making Pertinent Labs and Imaging studies reviewed. (See chart for details) 0807: We'll obtain x-ray for further evaluation. Differential diagnosis includes sprain, fracture. 0825: Patient's x-ray is unremarkable. Will have nursing place her in a Velcro wrist splint and have her follow-up with her physician in one week for reevaluation. Dragon Disclaimer Dragon Disclaimer This electronic medical record was generated, in whole or in part, using a voice recognition dictation system. Departure Departure Impression: Primary Impression: Right wrist sprain Disposition: HOME, SELF-CARE Condition: STABLE Referrals: LYNDSEY CONTRERAS MD (PCP) Please follow up in 1 week for reevluation. Patient Instructions: Wrist Sprain with [facility] Additional Instructions: Wear your wrist splint as needed for support Scripts Diclofenac Sodium (DICLOFENAC SODIUM) 75 Mg Tablet. 1 TAB PO BID for 10 Days, #20 TAB 1 Refill Prov: PAULIE RYDER DO 10/03/19 PAULIE RYDER DO Oct 03, 2019 08:07
--- NOTE | 2019-10-03 08:20 | RAD ---
WRIST 3V RIGHT History: Lateral wrist pain. Technique: 3 views right wrist. Comparison: None. Findings: Negative ulnar variance. 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 No fracture. Soft tissues unremarkable. Impression: 1. No acute osseous abnormality. 2. 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 Electronically signed by: Gordo Meeks DO (10/03/2019 8:17 AM) [id number]
[2019-10-03] MEDS ORDERED: DICL75TA PO (08:29)
== END 2019-10-03 08:55 | disposition home or self-care (01) ==
LOC: ER 07:43
DX: S63.591A Other specified sprain of right wrist, initial encounter (principal); R60.0 Localized edema; I10 Essential (primary) hypertension; F17.200 Nicotine dependence, unspecified, uncomplicated; Z90.710 Acquired absence of both cervix and uterus; Z98.890 Other specified postprocedural states; W50.2XXA Accidental twist by another person, initial encounter; Y93.89 Activity, other specified; Y92.89 Other specified places as the place of occurrence of the external cause; Y99.0 Civilian activity done for income or pay
CPT/HCPCS: 29125; 73110; 99283

== ENCOUNTER → 2019-11-19 | Outpatient (CLI) | payer BC ==
[~2019-11-19] MED LIST changes: +DICL75TA PO
--- NOTE | 2019-11-19 09:26 | KCIC ---
Complete abdominal ultrasound INDICATION: Right upper quadrant abdominal pain. TECHNIQUE: Grayscale, color and spectral Doppler imaging of the abdominal contents was performed. FINDINGS: Normal size liver measuring 12.8 cm with smooth surface contour but mild increased echogenicity suggesting fatty infiltration. No liver masses. Gallbladder is not seen and is likely surgically absent, consistent with provided history of prior cholecystectomy 2 years ago. No intra or extrahepatic biliary dilation with the common bile duct measuring 0.4 mm diameter. Right kidney shows no hydronephrosis or stones and measures 9.4 x 4.5 x 4.6 cm. Left kidney shows no hydronephrosis or stones and measures 9.9 x 5.0 x 4.7 cm. Pancreas is poorly visualized due to bowel gas artifact. The visualized portion is unremarkable. Spleen is poorly visualized due to bowel gas artifact. It measures 8.6 cm. Aorta shows proximal ectasia to 2.8 cm with measurements of 2.2 cm in the midportion and 1.4 cm distally. The IVC is unremarkable in its visualized portion. No ascites or pleural effusion is identified. IMPRESSION: Mild fatty liver and postcholecystectomy changes with no evidence of biliary dilation. There is decrease in size of both kidneys that could reflect mild atrophy from chronic kidney disease. Electronically signed by: Paola Larson MD (11/19/2019 9:23 AM) [id number]
== END | disposition home or self-care (01) ==
LOC: KCIC US 07:49
PROVIDERS: ATTEND Family Medicine
DX: K76.0 Fatty (change of) liver, not elsewhere classified (principal); N26.1 Atrophy of kidney (terminal); N18.9 Chronic kidney disease, unspecified; I77.819 Aortic ectasia, unspecified site; E66.9 Obesity, unspecified; Z90.49 Acquired absence of other specified parts of digestive tract
CPT/HCPCS: 76700

== ENCOUNTER → 2021-01-13 | Outpatient (CLI) | payer BC ==
[~2021-01-13] MED LIST changes: +NAPR-699 PO; -NAPR250T6 PO
--- NOTE | 2021-01-13 09:48 | KCIC ---
Right ankle 3 views. History history: Acute right ankle pain, M 25.571 3 views were taken of the right ankle. There is mild soft tissue swelling. There is evidence of osteo arthritis at the ankle with joint space narrowing and hypertrophic spurring. There is no acute fractu re. IMPRESSION: 1. Osteoarthritis right ankle. Electronically signed by: Jose Rodriguez MD (01/13/2021 9:46 AM) [id number]
== END ==
LOC: KCIC 09:05
PROVIDERS: ATTEND Family Medicine
DX: M19.071 Primary osteoarthritis, right ankle and foot (principal)
CPT/HCPCS: 73610